=== PATIENT | female | born 1990 | race Hispanic/Latino ===

== ENCOUNTER 2020-12-27 13:19 | Emergency (ER) | payer OTHER ==
[~2020-12-27] VITALS: Ht 152.4 cm; Wt 61.2 kg
[2020-12-27 14:13] LABS: CLARITY,URINE CLEAR (CLEAR); COLOR,URINE YELLOW (YELLOW); KETONES,URINE 1+ (NEGATIVE); LEUKOCYTE ESTERASE ,URINE TRACE (NEGATIVE); NITRITE,URINE NEGATIVE (NEGATIVE); PROTEIN,URINE DIPSTICK NEGATIVE (NEGATIVE); URINE UROBILINOGEN 0.2 mg/dL (0.2 - 1)
[2020-12-27 14:14] LABS: BACTERIA,URINE RARE /HPF; EPITHELIAL CELLS,URINE FEW /LPF; RBC,URINE 0-5 /HPF (0-5)
[2020-12-27 17:26] LABS: BASOPHILS % 0.5 % (0.0-1.0); EOSINOPHILS # (AUTO) 0.1 (0.0-0.4); EOSINOPHILS % 1.9 % (0.0-6.0); HEMATOCRIT 39.7 % (34.2-44.1); HEMOGLOBIN 13.4 g/dL (12.0-16.0); LYMPHOCYTES # (AUTO) 1.8 (1.0-3.2); LYMPHOCYTES % 31.8 % (18.0-39.1); MEAN CORPUSCULAR HGB CONC 33.8 g/dL (31-35); MONOCYTES # (AUTO) 0.4 (0.2-0.8); MONOCYTES % 7.4 % (4.4-11.3); NEUTROPHILS # (AUTO) 3.3 (2.1-6.9); NEUTROPHILS % 58.2 % (38.7-80.0); PLATELET COUNT 227 x10e3/uL (140-360); RED BLOOD COUNT 4.46 x10e6/uL (3.6-5.1)
[2020-12-27] MEDS ORDERED: SODIUM CHLORIDE 0.9% 1000ML 1,000 ML ONE (17:30)
[2020-12-27 17:43] LABS: ALANINE AMINOTRANSFERASE 45 IU/L (0-55); ALBUMIN 3.5 g/dL (3.5-5.0); ALBUMIN/GLOBULIN RATIO 1.1 (0.8-2.0); ALKALINE PHOSPHATASE 82 IU/L (40-150); ANION GAP 16.1 mmol/L (8-16); BLOOD UREA NITROGEN 8 mg/dL (7-26); BUN/CREATININE RATIO 15 (6-25); CALCIUM 8.4 mg/dL (8.4-10.2); CARBON DIOXIDE 21 mmol/L (22-29); CHLORIDE 104 mmol/L (98-107); CREATININE, SERUM 0.55 mg/dL (0.57-1.11); EST GLOMERULAR FILTRATION RATE > 60 ML/MIN (60-); GLUCOSE 81 mg/dL (74-118); POTASSIUM 4.1 mmol/L (3.5-5.1); SODIUM 137 mmol/L (136-145)
[2020-12-27] MEDS ORDERED: SODIUM CHLORIDE 0.9% 1000ML 1,000 ML IV SCH (17:45)
[2020-12-27 19:07] VITALS: BP 99/58
== END 2020-12-27 19:15 | disposition other institution (70) ==
LOC: ER 13:34
DX: O45.91 Premature separation of placenta, unspecified, first trimester (principal); J45.909 Unspecified asthma, uncomplicated; Z20.822 Contact with and (suspected) exposure to COVID-19
CPT/HCPCS: 36415; 76801; 80053; 81001; 85025; 86850; 86900; 93005; 93976; 99284; J7030; U0002